=== PATIENT | female | born 1945 ===

== ENCOUNTER 2016-12-13 21:54 | Emergency (ER) | payer OTHER ==
[2016-12-13 22:10] VITALS: TEMP 97.7
[2016-12-13] MEDS ORDERED: SODIUM CHLORIDE 0.9% 1000ML 1,000 ML IV ONE (22:14)
[2016-12-13] MEDS ORDERED: ONDANSETRON 4 MG ODT BU ONE (22:15)
[2016-12-13 22:42] LABS: BASOPHILS % (AUTO) 1 % (0-3); EOSINOPHILS % (AUTO) 3 % (0-9); HEMATOCRIT 36 % (35-47); MEAN CORPUSCULAR HGB CONC 33.6 gm/dl (32.0-36.0); MEAN CORPUSCULAR VOLUME 96 fL (81-99); MONOCYTES % (AUTO) 9.3 % (0-12); NEUTROPHILS % (AUTO) 55.3 % (37-80)
[2016-12-13] MEDS ORDERED: ONDANSETRON 4 MG ODT ONE (22:45)
[2016-12-13 22:50] LABS: CALCIUM 9.2 mg/dl (8.5-10.1); POTASSIUM 3.3 mMol/L (3.5-5.1)
[2016-12-13 23:38] VITALS: BP 151/85; PULSE 83; RESP 16; O2SAT 99
== END 2016-12-13 23:53 | DRG 392 ==
LOC: ED 21:54
DX: K52.9 Noninfective gastroenteritis and colitis, unspecified (principal)
CPT/HCPCS: 80048; 85025; 96365; 99283; 99284